=== PATIENT | male | born 1955 | race Caucasian/White ===

== ENCOUNTER 2017-06-22 22:41 | Emergency (ER) | payer BC ==
[~2017-06-22] VITALS: Ht 182.9 cm; Wt 150.0 kg
[2017-06-22 23:01] VITALS: BP 155/91; PULSE 88; RESP 22; O2SAT 98
--- NOTE | 2017-06-22 23:27 | PD ---
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 The patient had a left total knee performed in [place], [place], 2016. He subsequently had an infection and was placed on IV antibiotics and antibiotic knee spacers. The patient states he is scheduled to be on IV antibiotics until June 25, however, states his infectious disease physician has told him that he did not need to be on antibiotics this long. The patient accidentally pulled his PICC line earlier today several inches. He is on vancomycin twice a day. He denies any current fever and states his last several cultures have been negative. He is currently in town for a [place] festival from [place], [place]. PFSH Past Medical History Cardiac Catheterization: Yes High Cholesterol: Yes Chest Pain: Yes COPD: Yes (spot on my lung) Coronary Artery Disease: Yes Diabetes: Yes Patient Takes Glucophage: Yes (06/22/2017 1900) Diminished Hearing: No GERD: Yes Hypertension: Yes Medical other: Yes (abd hernia) Sleep Apnea: Yes Tetanus Vaccination: < 5 Years Influenza Vaccination: Yes Past Surgical History Cholecystectomy: Yes Coronary Stent: Yes (X3) Other Surgery: Yes (back sx, right knee replacement, caroid sx) Social History Alcohol Use: No (no ETOH for 3 yrs) Tobacco Use: No (20 yrs ago) Substance Use: No Allergies-Medications (Allergen,Severity, Reaction): Coded Allergies: No Known Allergies (Unverified , 06/22/17) Review of Systems Except as stated in HPI: all other systems reviewed are Neg General / Constitutional: No: Fever Cardiovascular: No: Chest Pain or Discomfort Respiratory: No: Shortness of Breath Gastrointestinal: No: Nausea, Vomiting Musculoskeletal: Positive: Other (As noted in the history of present illness) Physical Exam Narrative GENERAL: Awake, alert, pleasant 61-year-old male who appears his stated age and is in no acute respiratory distress. SKIN: Focused skin assessment warm/dry. HEAD: Atraumatic. Normocephalic. EYES: No injection or drainage. MUSCULOSKELETAL: Wound VAC in place of the anterior aspect of the left knee. The left lower extremity is larger than the right lower extremity. The right upper extremity has a PICC line which appears to be in place. No active bleeding. NEUROLOGICAL: Awake and alert. No obvious cranial nerve deficits. Motor grossly within normal limits. Normal speech. Oriented 4. Follows commands without difficulty. PSYCHIATRIC: Appropriate mood and affect; insight and judgment normal. Data Data Last Documented VS Vital Signs Date Time Temp Pulse Resp B/P (MAP) Pulse Ox O2 Delivery O2 Flow Rate FiO2 06/22/17 23:01 88 22 155/91 (112) 98 Orders Orders Chest, Single Ap (06/22/17 ) Heparin Central Flush (Heparin Central F (06/23/17 00:45) Ed Discharge Order (06/23/17 01:12) MDM Medical Decision Making Medical Screen Exam Complete: Yes Emergency Medical Condition: Yes Medical Record Reviewed: Yes Interpretation(s) Chest x-ray reveals the tip of the PICC line catheter is approximately in the mid subclavian vein. Differential Diagnosis Differential diagnosis includes PICC line malfunction, PICC displacement, septic joint, infected hardware. Narrative Course A chest x-ray was obtained for PICC line placement. X-ray reveals tip of the PICC line catheter is approximately in the mid subclavian vein. This is okay for 2 more doses of vancomycin. We did change external tubing and the PICC line flowed easily with a heparin flush. The patient is advised to follow-up with his primary physician. Return if symptoms worsen or progress. Diagnosis Primary Impression: PICC (peripherally inserted central catheter) in place Patient Instructions: General Instructions Additional Instructions: Please provide the patient a copy of his x-ray results of discharge. Follow-up with your primary physician. Return if symptoms worsen or progress. Med/Other Pt SpecificInfo: No Change to Meds Condition: Stable Barrington Dixon MD Jun 22, 2017 23:27
--- NOTE | 2017-06-23 00:33 | RADRPT ---
EXAM DATE/TIME: 06/22/2017 23:26 [facility] COMPARISON: No previous studies available for comparison. INDICATIONS : Evaluate the tip of the right sided PICC line which was accidently withdrawn. MEDICAL HISTORY : None. SURGICAL HISTORY : PICC line ENCOUNTER: Initial ACUITY: 1 day PAIN SCORE: 0/10 LOCATION: Right chest FINDINGS: A single view of the chest demonstrates the lungs to be symmetrically aerated without evidence of mas s, infiltrate or effusion. The cardiomediastinal contours are unremarkable. Mild elevation of the r ight hemidiaphragm. Osseous structures are intact. Right PIC line catheter can be followed to the level of the mid subclavian vein. CONCLUSION: Tip of the PICC line catheter is approximately in the mid subclavian vein. Artur Hawthorne MD on June 23, 2017 at 0:30 Board Certified Radiologist. This report was verified electronically.
== END 2017-06-23 01:40 | disposition home or self-care (01) ==
LOC: NEPE 22:41
DX: Z45.2 Encounter for adjustment and management of vascular access device (principal)
CPT/HCPCS: 71045; 99283; J1642